=== PATIENT | male | born 1945 | race Caucasian/White ===

== ENCOUNTER 2019-02-11 15:34 | Inpatient (IN) | payer OTHER ==
[~2019-02-11] VITALS: Ht 175.3 cm; Wt 89.8 kg
[2019-02-11 16:04] VITALS: BP 152/77
--- NOTE | 2019-02-11 16:30 | NUR ---
PT AMBULATED TO BED 3.
--- NOTE | 2019-02-11 16:40 | NUR ---
c/o n/v/d x yesterday----2 episodes of emesis today followed by sob immediately after. chronic back pain--- full clear speech with no accessory muscle use noted at this time hx--cad, triple bypass s/p mi, htn, back pain, dementia rx---asa, vit d3 50mcg qd, vit e 180mg qd, memantine 10mg bid, amlodipine 10mg qd, levothyroxine 25mg qd, tamsulisin 0.4mg bid, atenolol 12.5mg bid, magnesium 250mg qd, allopurinol 100mg qd, atorvastatin 80mg qd . SKIN IS PINK/WARM/DRY; AWAKE, ALERT. LUNGS CLEAR BL; HR EVEN AND REGULAR; PT DENIES ANY FEVER, CP, SOB, OR COUGH AT THIS TIME; PATIENT STATES PAIN OF 7/10 AT THIS TIME; VSS; PATIENT POSITIONED FOR COMFORT; HOB ELEVATED; BEDRAILS UP X2; BED DOWN. ER MD MADE AWARE OF PT STATUS. FAMIL DIEGO BEDSIDE.
--- NOTE | 2019-02-11 16:41 | NUR ---
PT ALSO C/O SHOULDER PAIN SINCE THIS MORNING RADIATING TO ARM.
[2019-02-11 18:01] LABS: BASOPHILS % (AUTO) 0.2 % (0.0-2.0); EOSINOPHILS % (AUTO) 0.2 % (0.0-4.0); HEMATOCRIT 47.8 % (36-52); HEMOGLOBIN 15.5 g/dL (12.0-18.0); LYMPHOCYTES % (AUTO) 8.8 % (20.5-51.1); MEAN CORPUSCULAR HEMOGLOBIN 30 pg (27-31); MEAN CORPUSCULAR HGB CONC 33 g/dL (33-37); MEAN CORPUSCULAR VOLUME 92.1 fL (80-94); MONOCYTES # (AUTO) 0.6 K/uL (0.8-1.0); MONOCYTES % (AUTO) 5.4 % (1.7-9.3); NEUTROPHILS % (AUTO) 85.4 % (42.2-75.2); PLATELET COUNT (AUTO) 209 K/uL (140-450); RED BLOOD CELL COUNT(AUTO) 5.19 MIL/uL (4.20-6.10); RED CELL DISTRIBUTION WIDTH 13.9 % (11.6-13.7); WHITE BLOOD COUNT (AUTO) 11.7 K/uL (4.8-10.8)
[2019-02-11 18:19] LABS: ANION GAP 13.4 (8-16); CARBON DIOXIDE 25.3 mmol/L (21-32); CHLORIDE 104 mmol/L (98-107); CREATININE 1.1 mg/dL (0.7-1.3); GLUCOSE 193 mg/dL (74-106); POTASSIUM 3.7 mmol/L (3.5-5.1); SODIUM SERUM 139 mmol/L (136-145); UREA NITROGEN, BLOOD 15 mg/dL (7-18)
[2019-02-11 18:23] LABS: ALBUMIN 4.1 g/dL (3.4-5.0); ASPARTATE AMINOTRANSFERASE 29 U/L (15-37); TOTAL BILIRUBIN 0.6 mg/dL (0.0-1.0)
--- NOTE | 2019-02-11 19:05 | NUR ---
DR. TURNER AT BEDSIDE TO ASSESS PT.
[2019-02-11] MEDS ORDERED: ASPIRIN 81 MG TAB.CHEW PO ONE (19:10)
--- NOTE | 2019-02-11 19:10 | NUR ---
ENDORSED TO PM SHIFT RN.
[2019-02-11] MEDS ORDERED: ALLO100T21 PO (19:13)
[2019-02-11] MEDS ORDERED: MEMA10TA PO (19:13)
[2019-02-11] MEDS ORDERED: AMLO10TA PO (19:13)
[2019-02-11] MEDS ORDERED: LIP80 PO (19:13)
[2019-02-11] MEDS ORDERED: TAMS0.4C96 PO (19:13)
[2019-02-11] MEDS ORDERED: ASPI-1718 PO (19:13)
[2019-02-11] MEDS ORDERED: MAGN250T22 PO (19:13)
[2019-02-11] MEDS ORDERED: ATEN25TA7 PO (19:13)
[2019-02-11] MEDS ORDERED: CHOL200072 PO (19:13)
[2019-02-11] MEDS ORDERED: SYN.05 PO (19:13)
--- NOTE | 2019-02-11 19:36 | NUR ---
PATIENT ALERT AND ORIENTED, BREATHING EVEN AND UNLABORED
[2019-02-11] MEDS ORDERED: NACL 0.9% 1,000 ML IV SCH (19:49)
[2019-02-11] MEDS ORDERED: ONDANSETRON 4 MG/2 ML VIAL IM/IVP PRN (19:50)
[2019-02-11] MEDS ORDERED: DOCUSATE SODIUM 100 MG GELCAP PO PRN (19:50)
[2019-02-11] MEDS ORDERED: ACETAMINOPHEN 325 MG TAB PO PRN (19:50)
[2019-02-11] MEDS ORDERED: HYDROcodone/APAP 5/325 MG 1 TAB TAB PO PRN (19:50)
--- NOTE | 2019-02-11 20:30 | NUR ---
PATIENT ALERT AND ORIENTED, BREATHING EVEN AND UNLABORED
--- NOTE | 2019-02-11 21:00 | NUR ---
Patient will be admitted to care of DR HUNG. Admited to TELE. Will go to room 106B. Belongings list completed. Report to RANDOLPH HADDAD.
[2019-02-11 21:15] VITALS: BP 142/70
--- NOTE | 2019-02-11 21:25 | NUR ---
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
[2019-02-12] VITALS: BP_SYST 148; BP_SYST 155; BP_DIAS 72; BP_DIAS 76
--- NOTE | 2019-02-12 | NUR ---
PT CONFUSED PULL OUT THE TELEMETRY BOX SEVERAL TIME, PT IS ORIENTED AND ASSISTED TO THE RESTROOM ON TELMETRY SR NOT SIGNS OF PAIN NOTES
[2019-02-12 00:33] LABS: PHOSPHORUS 2.1 mg/dL (2.5-4.9); THYROID STIMULATING HORMONE 1.98 uIU/mL (0.34-3.74)
[2019-02-12 01:33] LABS: PROTHROMBIN TIME 10.2 secs (10.8-13.4)
[2019-02-12 02:16] LABS: MAGNESIUM 1.4 mg/dL (1.8-2.4)
--- NOTE | 2019-02-12 03:00 | NUR ---
PT CONFUSED AND PULL OUT THE IV AND A NER IV IS INSERTED ON RT HAND AND LEFT HAND GAUGE #22 PT O;N TELMETRY SR VOIDING WELL
[2019-02-12 04:00] VITALS: BP 159/75
[2019-02-12] MEDS ORDERED: hePARIN / DEXT 5% PREMIX 250 ML IV SCH ×2 (04:00→04:30)
[2019-02-12] MEDS ORDERED: HEPARIN PER PHARMACY MC PRN (04:00)
--- NOTE | 2019-02-12 05:39 | NUR ---
HEPARIN DRIP STARTED AT 10 ML/H AT 1000 UNITS/H PT DENIES ANY PAIN VOIDING WELL ON URINAL , O;N TELEMETRY SR
[2019-02-12] MEDS ORDERED: LEVOTHYROXINE 0.05 MG TAB PO SCH (06:30)
--- NOTE | 2019-02-12 06:31 | NUR ---
PT ON HEPARIN DRIP WILL BE ENDORSED TODAY SHIFT NURSE FOR CONTINUE OF CARE , ON TELE SR AND SUPERVISOR BODY ASSEMBLY ID REQUESTED FOR PT TO BE TRANSFER TO HIGH LEVEL OF CARE.
--- NOTE | 2019-02-12 07:25 | NUR ---
RECEIVED BEDSIDE REPORT FROM NIGHTSHIFT NURSE. PT RESTING IN BED. ABLE TO MAKE NEEDS KNOWN. RESPIRATIONS EVEN AND UNLABORED WITH NO SOB OR RESPIRATORY DISTRESS. IV SITES IN LEFT AND RIGHT HAND 22 G IS CLEAN, DRY, AND INTACT. HEPARIN DRIP STILL INFUSING. PT TOLERATING WELL. NO SIGNS OF DISTRESS NOTED. SKIN WARM AND DRY TO TOUCH. SAFETY MEASURES IN PLACE. WILL CONTINUE TO MONITOR.
[2019-02-12 07:50] LABS: BASOPHILS # (AUTO) 0.1 K/uL (0.00-0.22); BASOPHILS % (AUTO) 0.6 % (0.0-2.0); EOSINOPHILS # (AUTO) 0.1 K/uL (0-0.4); HEMATOCRIT 47.8 % (36-52); HEMOGLOBIN 15.8 g/dL (12.0-18.0); LYMPHOCYTES # (AUTO) 1.9 K/uL (2.0-11.5); LYMPHOCYTES % (AUTO) 15.2 % (20.5-51.1); MEAN CORPUSCULAR HEMOGLOBIN 30 pg (27-31); MEAN CORPUSCULAR HGB CONC 33 g/dL (33-37); MEAN CORPUSCULAR VOLUME 91.6 fL (80-94); MONOCYTES % (AUTO) 8.1 % (1.7-9.3); NEUTROPHILS # (AUTO) 9.5 K/uL (1.8-7.7); NEUTROPHILS % (AUTO) 75.1 % (42.2-75.2); PLATELET COUNT (AUTO) 225 K/uL (140-450); RED BLOOD CELL COUNT(AUTO) 5.22 MIL/uL (4.20-6.10); RED CELL DISTRIBUTION WIDTH 13.8 % (11.6-13.7); WHITE BLOOD COUNT (AUTO) 12.7 K/uL (4.8-10.8)
[2019-02-12 08:00] VITALS: BP 134/79
[2019-02-12 08:10] LABS: ANION GAP 12.9 (8-16); CARBON DIOXIDE 26.2 mmol/L (21-32); CHLORIDE 103 mmol/L (98-107); CREATININE 0.8 mg/dL (0.7-1.3); GLUCOSE 167 mg/dL (74-106); POTASSIUM 3.1 mmol/L (3.5-5.1); SODIUM SERUM 139 mmol/L (136-145); UREA NITROGEN, BLOOD 11 mg/dL (7-18)
--- NOTE | 2019-02-12 08:30 | NUR ---
ADMINISTERED MEDICATION PRESCRIBED PER MD ORDER. PT TOLERATED WELL. MEDICATION EDUCATION PERFORMED. PT VERBALIZED UNDERSTANDING. SAFETY MEASURES IN PLACE. WILL CONTINUE TO MONITOR
--- NOTE | 2019-02-12 08:40 | NUR ---
PATIENT HAS BEEN SCREENED AND CATEGORIZED MODERATE NUTRITION RISK. PATIENT WILL BE SEEN WITHIN 3-5 DAYS OF ADMISSION. 02/14/19 02/16/[address]
[2019-02-12] MEDS ORDERED: amLODIPine 5 MG TAB PO SCH (09:00)
[2019-02-12] MEDS ORDERED: ALLOPURINOL 100 MG TAB PO SCH (09:00)
[2019-02-12] MEDS ORDERED: TAMSULOSIN 0.4 MG CAP PO SCH (09:00)
[2019-02-12] MEDS ORDERED: ATORVASTATIN 80 MG TAB PO SCH (09:00)
[2019-02-12] MEDS ORDERED: ATENOLOL 25 MG TAB PO SCH (09:00)
[2019-02-12] MEDS ORDERED: ASPIRIN 81 MG TAB.CHEW PO SCH (09:00)
[2019-02-12] MEDS ORDERED: MEMANTINE 10 MG TAB PO SCH (09:00)
[2019-02-12] MEDS ORDERED: LISINOPRIL 5 MG TAB PO SCH (09:00)
--- NOTE | 2019-02-12 10:29 | NUR ---
Unix Engineer Note: Basic Screen: Yes High Risk DC Screen [place]armora: REINIER FUNEZ Willows Relationship: DAUGHTER Pre-Admission Living Arrangements: Lives with Other Prior ADL Independent Current Home Health Name/Tel: N/A Current DME/02 Name/Tel: [facility] Current Hospice Name/Tel: N/A Current Dialysis Name/Tel: N/A Healthcare Decision Maker: Patient Advance Directive No - REFUSED Physician Orders for Life Sustaining Treatment Form No Patient/Family Have Educational Needs No Information Taught: Advance Directive Person Taught: Patient Teaching Tools: Verbal Factors Affecting Learning: None Participation Level: Refused Evaluation: Verbalizes Understanding Needs Additional Education: No Discipline: Case Mgt/Social Svcs Tentative Discharge Plan/Destination: No Needs Identified Will require assistance post discharge: No Referred to Nurse Reviewer: No Tentative Discharge Plan Summary: Patient is a 73-year-old male admitted for chest pain. Patient has PMHX of JO, HTN, CAD s/p, CABG, IA, hypothyroid, HLD, BPH. Patient was admitted from home. SW met with patient at bedside to verify demographics. Patient reports correction in name of emergency contact on face sheet. Patient stated that he currently lives at [address] [place] [address], where he lives with his family and his brother's family. Patient stated that he lives there temporarily but plans to move out with his family. Patient reported no history of mental health and no history of substance abuse. Patient's tentative plan is to return home after discharge. No further needs identified. Signature: SHAMA Mckeon Date: Feb 12, 2019 Time: 10:25
--- NOTE | 2019-02-12 10:45 | NUR ---
PT ASLEEP IN BED UPON ARRIVAL. RESPONSIVE TO VERBAL AND TACTILE STIMULI. ABLE TO MAKE NEEDS KNOWN. RESPIRATIONS EVEN AND UNLABORED WITH NO SOB OR RESPIRATORY DISTRESS. SKIN WARM AND DRY TO TOUCH. SAFETY MEASURES IN PLACE. WILL CONTINUE TO MONITOR.
[2019-02-12 10:56] LABS: PHOSPHORUS 1.6 mg/dL (2.5-4.9)
--- NOTE | 2019-02-12 11:11 | NUR ---
DC PLANNING 73 YRS OLD MALE PATIENT WAS ADMITTED FROM HOME WITH A DX OF CHEST PAIN NSTEMI . PT HAS A HX OF [place], CAD, AND S/P CABG. EKG SHOWED [facility]. [facility] DEMONSTRATOR DR WILCOX SEEN PT STARTED HEPARIN DRIP , ECHO AND PLAN TO TRANSFER FOR CARDIAC CATH. FAXED TO [facility] NO BED AVAILABLE, [facility] ACCEPTED PT SPOKE WITH LASHAWN TOWER OPERATOR BED CONTROL REVIEW THE CASE AND CALL BACK. CALLED DR DEBORAH Cosme. ASKED HIM IF HE IS AVAILABLE TO DO THE CARDIAC CATH AT [place]. DR CABRERA STATED OK TO GO TO [place] IF THEY NEED HIM . CALLED BACK LASHAWN AND NOTIFIED HER THAT DR CABRERA IS AVAILABLE AND PROVIDED HER HIS CELL PHONE. AND NOTIFIED DR HUNG AND DR ROY WELL.CM TO FOLLOW Addendum: 02/12/19 at 1515 by Unique Caceres CM DC PLANNING: CALLED [facility] TOWER OPERATOR SPOKE WITH LASHAWN STATED ACCEPTED PT AND DR VALDEZ IS THE ACCEPTING DR PT CAN COME TONIGHT AND THE PROCEDURE WILL BE TOMORROW MORNING . ARRANGED TRANSPORT WITH [facility] AND PLACE IT WILL CALL .WAITING FOR THE ROOM NUMBER. CM TO FOLLOW Addendum: 02/12/19 at 1614 by Unique Caceres CM DC PLANNING PT CAN GO TO [facility] ROOM 244B # TO GIVE REPORT [phone] ARRANGED TRANSPORT WITH [facility] HOUSE CALLS NURSE PRACTITIONER TIME 7:30 PM .NOTIFIED CHARGE NURSE REGINALDO
[2019-02-12 12:00] VITALS: BP 145/85
--- NOTE | 2019-02-12 12:28 | NUR ---
HOURLY ROUNDING. PT RESTING IN BED UPON ARRIVAL. ABLE TO MAKE NEEDS KNOWN. RESPIRATIONS EVEN AND UNLABORED WITH NO SOB OR RESPIRATORY DISTRESS. SKIN WARM AND DRY TO TOUCH. SAFETY MEASURES IN PLACE. WILL CONTINUE TO MONITOR.
--- NOTE | 2019-02-12 12:57 | NUR ---
RECEIVED CALL FROM CHEMISTRY WITH A CRITICAL LAB VALUE. TROPONIN IS 13.38. MD NOTIFIED AT 1310 WITH NO NEW ORDERS. SAFETY MEASURES IN PLACE. WILL CONTINUE TO MONITOR.
[2019-02-12 12:59] LABS: CHOL/HDL RATIO 4.2 (1-4.5)
[2019-02-12] MEDS ORDERED: LISI-424 PO (13:47)
[2019-02-12] MEDS ORDERED: [UNRECOGNIZED DRUG - CODE] IV (13:47)
[2019-02-12] MEDS ORDERED: POTASSIUM PHOSPHATE 15 MM in NACL 0.9% 250 ML IV SCH (14:00)
[2019-02-12 14:18] LABS: PROTHROMBIN TIME 10.2 secs (10.8-13.4)
--- NOTE | 2019-02-12 14:53 | NUR ---
ADMINISTERED MEDICATION PRESCRIBED PER MD ORDER. PT TOLERATED WELL. MEDICATION EDUCATION PERFORMED. PT VERBALIZED UNDERSTANDING. SAFETY MEASURES IN PLACE. WILL CONTINUE TO MONITOR
[2019-02-12 16:00] VITALS: BP 133/63
--- NOTE | 2019-02-12 16:33 | NUR ---
PT AND ARE AWARE OF PT GETTING TRANSFERRED TO [facility] FOR CARDIAC CATH AROUND 1930 WITH [facility]. CD OBTAINED FROM RADIOLOGY AND PLACED IN PT CHART. SAFETY MEASURES IN PLACE. WILL CONTINUE TO MONITOR.
[2019-02-12] MEDS ORDERED: ALBUTEROL SULFATE/IPRATROPIU 3 ML SOL IH PRN (16:40)
[2019-02-12 17:35] VITALS: BP 133/63
--- NOTE | 2019-02-12 18:40 | NUR ---
PT RESTING IN BED WITH AT BEDSIDE. ABLE TO MAKE NEEDS KNOWN. RESPIRATIONS EVEN AND UNLABORED WITH NO SOB OR RESPIRATORY DISTRESS. SKIN WARM AND DRY TO TOUCH. SAFETY MEASURES IN PLACE. WILL CONTINUE TO MONITOR
--- NOTE | 2019-02-12 19:34 | NUR ---
PT RESTING IN BED WITH AT BEDSIDE. RESPIRATIONS EVEN AND UNLABORED WITH NO SOB OR RESPIRATORY DISTRESS. SKIN WARM AND DRY TO TOUCH. ABLE TO MAKE NEEDS KNOWN. SAFETY MEASURES IN PLACE. TRIED CALLING [employer] AT 1715 TO GIVE REPORT AND THEY SAID TO CALL LATER AFTER SHIFT CHANGE. CALLED AT 191 AND THEY SAID TO CALL THEM IN 15 MINUTES BECAUSE THEY ARE IN REPORT AND CANNOT INTERRUPT. CALLED AT 193 AND THEY SAID THEY STILL COULD NOT TRANSFER MY CALL BECAUSE SHIFT CHANGE WAS HAPPENING AND HE COULD NOT DISTURB. EXPLAINED THAT [facility] SPECIAL EDUCATION TEACHER IS AT 1930 AND IF I COULD GIVE REPORT TO CHARGE AND HE SAID HE STILL COULD NOT TRANSFER MY CALL. ENDORSED TO NIGHTSHIFT CHARGE NURSE. PT IS STABLE
--- NOTE | 2019-02-12 19:53 | NUR ---
HEPARIN BOLUS OF 3000 UNITS GIVEN PER MD.
--- NOTE | 2019-02-12 20:10 | NUR ---
REPORT GIVEN TO HERSON IN [facility] REGARDING PATIEN BEING TRANSFERRED THERE FOR CARDIAC CATH.
[2019-02-12 20:13] LABS: MAGNESIUM 1.6 mg/dL (1.8-2.4)
--- NOTE | 2019-02-12 20:15 | NUR ---
DISCHARGE PATIEN TO [facility], AWAKE ALERT AND ORINTED X2, NO RESPIRATORY DISTRESS NOTED OR C/O PAIN.
== END 2019-02-12 20:15 | disposition short-term general hospital (02) | DRG 281 ==
LOC: MED 15:34 → MTU 19:57 → UNDOADMIN 19:57 → MTU 02-12 08:00
PROVIDERS: ADMIT General Practice; ATTEND General Practice
DX: I21.4 Non-ST elevation (NSTEMI) myocardial infarction (principal); E66.2 Morbid (severe) obesity with alveolar hypoventilation; E83.39 Other disorders of phosphorus metabolism; E83.42 Hypomagnesemia; G30.9 Alzheimer's disease, unspecified; F02.80 Dementia in other diseases classified elsewhere, unspecified severity, without behavioral disturbance, psychotic disturbance, mood disturbance, and anxiety; E03.9 Hypothyroidism, unspecified; N40.0 Benign prostatic hyperplasia without lower urinary tract symptoms; I25.10 Atherosclerotic heart disease of native coronary artery without angina pectoris; L57.0 Actinic keratosis; G89.29 Other chronic pain; M54.9 Dorsalgia, unspecified; I10 Essential (primary) hypertension; F17.210 Nicotine dependence, cigarettes, uncomplicated; L81.9 Disorder of pigmentation, unspecified; E78.5 Hyperlipidemia, unspecified; Z95.1 Presence of aortocoronary bypass graft; I25.2 Old myocardial infarction; Z68.29 Body mass index [BMI] 29.0-29.9, adult; Z79.899 Other long term (current) drug therapy; Z95.5 Presence of coronary angioplasty implant and graft; Z90.49 Acquired absence of other specified parts of digestive tract; Z82.49 Family history of ischemic heart disease and other diseases of the circulatory system; Z82.0 Family history of epilepsy and other diseases of the nervous system
CPT/HCPCS: 36415; 71045; 80048; 80053; 83036; 83690; 83735; 83880; 84100; 84134; 84443; 84484; 85025; 85610; 85730; 87081; 93005; 99285; G0482; J1644; J7030